=== PATIENT | female | born 1960 | race African-American/Black ===

== ENCOUNTER → 2016-11-21 | Outpatient (CLI) | payer OTHER ==
[~2016-11-21] MED LIST: NORVASC5 MG PO
== END ==
LOC: RAD 01:21
DX: R92.2 Inconclusive mammogram (principal)

== ENCOUNTER → 2018-09-15 | Outpatient (CLI) | payer BC ==
[~2018-09-15] MED LIST changes: +NAPROSYN500 MG PO; +NEURONTIN 300300 M1 PO; +NORFLEX100 MG PO
== END ==
LOC: RAD 12:50
DX: Z12.31 Encounter for screening mammogram for malignant neoplasm of breast (principal)

== ENCOUNTER → 2019-03-03 | Outpatient (CLI) | payer BC, OTHER | LOC: ULTRA 09:03 | DX: R10.9 Unspecified abdominal pain (principal); R14.0 Abdominal distension (gaseous); I10 Essential (primary) hypertension; G43.909 Migraine, unspecified, not intractable, without status migrainosus; Z83.3 Family history of diabetes mellitus; Z88.8 Allergy status to other drugs, medicaments and biological substances; Z87.891 Personal history of nicotine dependence ==

== ENCOUNTER → 2020-01-28 | Outpatient (CLI) | payer BC, OTHER | LOC: RAD 12:45 | DX: M54.2 Cervicalgia (principal) ==

== ENCOUNTER → 2021-07-20 | Outpatient (CLI) | payer BC, OTHER | LOC: BC 13:27 | PROVIDERS: ATTEND Nurse Practitioner | DX: Z12.31 Encounter for screening mammogram for malignant neoplasm of breast (principal) ==